=== PATIENT | female | born 1930 | race Caucasian/White ===

== ENCOUNTER 2016-04-02 13:40 | Inpatient (IN) ==
--- NOTE | 2016-04-01 21:40 | Discharge Summary ---
<DenisereganKimberly L - Last Filed: 04/02/16 13:55> Date of Encounter: 04/02/16 - Discharge Diagnosis (1) Fracture of humeral shaft, closed Priority: Primary Status: Acute Qualifiers: Encounter type: initial encounter Fracture morphology: unspecified fracture morphology Laterality: left Qualified Code(s): S42.302A - Unspecified fracture of shaft of humerus, left arm, initial encounter for closed fracture (2) Obesity Priority: Secondary Status: Chronic Qualifiers: Obesity type: unspecified obesity type Obesity severity: non-morbid Qualified Code(s): E66.9 - Obesity, unspecified (3) CAD (coronary artery disease) Priority: Secondary Status: Chronic Qualifiers: Coronary Disease-Associated Artery/Lesion type: unspecified vessel or lesion type [place] vs. transplanted heart: unspecified whether [place] or transplanted heart Associated angina: angina presence unspecified Qualified Code(s): I25.10 - Atherosclerotic heart disease of [place] coronary artery without angina pectoris (4) Diabetes mellitus, type 2 Priority: Secondary Status: Chronic Qualifiers: Diabetes mellitus complication status: without complication Diabetes mellitus long-term insulin use: unspecified long-term insulin use status Qualified Code(s): E11.9 - Type 2 diabetes mellitus without complications (5) Dyslipidemia Priority: Secondary Status: Chronic (6) Osteopenia Priority: Secondary Status: Chronic (7) Renal insufficiency, mild Priority: Secondary Status: Chronic (8) History of infection Priority: Secondary Status: Chronic Comments: Left Shoulder - Discharge Medications Home Medications: Hydrochlorothiazide 12.5 mg PO DAILY 11/04/14 [History] Loratadine [Loradamed] 10 mg PO DAILY 11/04/14 [History] Lovastatin 40 mg PO 1600 11/04/14 [History] Aspirin [Adult Low Dose Aspirin EC] 81 mg PO DAILY 04/14/15 [History] Glimepiride [Amaryl] 4 mg PO DAILY 04/14/15 [History] TraMADol [Ultram] 50 mg PO Q6HR PRN #20 tablet 05/28/15 [Rx] OxyCODONE Immed Rel [Roxicodone 5 MG] 5 - 10 mg PO Q6HR PRN #40 tablet 04/01/16 [Rx] Calcium Carbonate [Calcium] 1,500 mg PO DAILY 04/02/16 [History] Escitalopram Oxalate 5 mg PO DAILY 04/02/16 [History] Losartan Potassium [Cozaar] 50 mg PO 1500 04/02/16 [History] Metformin HCl [Fortamet] 500 mg PO BID 04/02/16 [History] Metoprolol Tartrate [Lopressor] 50 mg PO DAILY 04/02/16 [History] Allergies/Adverse Reactions: Allergies codeine Allergy (Verified 04/02/16 14:38) See Comments unsure Penicillins [PCN] Allergy (Verified 04/02/16 14:38) Hives pioglitazone [From Actos] Allergy (Verified 04/02/16 14:38) Palpitations Primary care physician: Jack Mcneil DO - Patient Status Disposition: Transfer Inpatient Rehab Fac Condition: Good - Discharge Instructions Follow Up With: Jack Mcneil DO [Primary Care Provider] - - Hospital Course Hospital course: Ms. South is a 85 year old female - Time Spent with Patient Total time spent providing and/or coordinating discharge services: <Harjinder Hong - Last Filed: 04/03/16 06:50> Date of Encounter: 04/03/16 Time of Encounter: 06:49 - Discharge Diagnosis (1) Fracture of humeral shaft, closed Priority: Primary Status: Acute Qualifiers: Encounter type: subsequent encounter Fracture morphology: unspecified fracture morphology Laterality: left (2) History of infection Priority: Secondary Status: Chronic (3) CAD (coronary artery disease) Priority: Secondary Status: Chronic Qualifiers: Coronary Disease-Associated Artery/Lesion type: unspecified vessel or lesion type [place] vs. transplanted heart: unspecified whether [place] or transplanted heart Associated angina: angina presence unspecified Qualified Code(s): I25.10 - Atherosclerotic heart disease of [place] coronary artery without angina pectoris (4) Diabetes mellitus, type 2 Priority: Secondary Status: Chronic Qualifiers: Diabetes mellitus complication status: without complication Diabetes mellitus long term care phlebotomist insulin use: unspecified long term care phlebotomist insulin use status Qualified Code(s): E11.9 - Type 2 diabetes mellitus without complications (5) Dyslipidemia Priority: Secondary Status: Chronic (6) Hypertension Priority: Secondary Status: Chronic Qualifiers: Hypertension type: unspecified secondary hypertension Qualified Code(s): I15.9 - Secondary hypertension, unspecified (7) Obesity Priority: Secondary Status: Chronic Qualifiers: Obesity type: unspecified obesity type Obesity severity: unspecified obesity severity Qualified Code(s): E66.9 - Obesity, unspecified (8) Osteopenia Priority: Secondary Status: Chronic (9) Renal insufficiency, mild Priority: Secondary Status: Chronic (10) Acute blood loss anemia Priority: Primary Status: Acute Primary care physician: Jack Mcneil DO - Patient Status Functional capacity at discharge: independent ambulation Overall status at discharge: patient is progressing back to baseline - Hospital Course Hospital course: Ms. South is a 85 year old female The patient had an uneventful postoperative course. They received antibiotics and physical therapy and were discharged in stable condition. There will follow -up in the office in 2 weeks. - Time Spent with Patient Total time spent providing and/or coordinating discharge services:
[2016-04-02] MEDS ORDERED: Ringers Solution, Lactated 1,000 ML IVC SCH ×2 (14:15→19:41)
--- NOTE | 2016-04-02 14:16 | History & Physical Report ---
Date of Encounter: 04/02/16 Time of Encounter: 14:16 24 Hour HP Update - Instructions Instructions: If the History and Physical is less than 30 days old and was completed prior to A.M. admission and or procedure and has NOT been updated on calendar day of procedure please complete this update prior to performing procedure. - Update Patient reports changes in Medical Condition: No Changes in assessment/condition: No Changes in Medication: No Preop tests/diagnostics Reviewed: Yes Surgery Remains Indicated: Yes Consent for Planned Operative Procedure(s) Verified: Yes - Pre-Operative Checklist Preoperative Checklist Indicated: No Prophylactic Antibiotic Ordered: Yes Is VTE Prophylaxis Indicated?: Yes
[2016-04-02] MEDS ORDERED: CeFAZolin Pre 2,000 MG/100 ML 2,000 MG/100 ML BAG IVPB ONE (14:36)
--- NOTE | 2016-04-02 14:46 | Anesthesia Evaluation PreOp ---
Date of Encounter: 04/02/16 Time of Encounter: 14:43 - Past History Planned Operation: l tsr revision Cardiac History: HI (cad), Hyperlipidemia, Cardiac Surgery (3v cabg), Other ( echo: 12/12 ef 60, nl rv) Pulmonary History: Denies Any Significant HX RECREATIONAL DIRECTOR History: Other (periphe neuropathy) Other Medical History: Diabetes Type II Anesthesia History: No Prior Anesthetic Complications, Past Anesthesia (tahbso, cabg, bladder tuck, l tsr) Alcohol Use: none Drug use: none Medications and Allergies Hydrochlorothiazide 12.5 mg PO DAILY 11/04/14 [History] Loratadine [Loradamed] 10 mg PO DAILY 11/04/14 [History] Lovastatin 40 mg PO HS 11/04/14 [History] Aspirin [Adult Low Dose Aspirin EC] 81 mg PO DAILY 04/14/15 [History] Glimepiride [Amaryl] 8 mg PO DAILY 04/14/15 [History] TraMADol [Ultram] 50 mg PO Q6HR PRN #20 tablet 05/28/15 [Rx] OxyCODONE Immed Rel [Roxicodone 5 MG] 5 - 10 mg PO Q6HR PRN #40 tablet 04/01/16 [Rx] Calcium Carbonate [Calcium] 1,500 mg PO DAILY 04/02/16 [History] Escitalopram Oxalate 5 mg PO DAILY 04/02/16 [History] Losartan Potassium [Cozaar] 50 mg PO 1500 04/02/16 [History] Metformin HCl [Fortamet] 500 mg PO BID 04/02/16 [History] Metoprolol Tartrate [Lopressor] 50 mg PO DAILY 04/02/16 [History] Allergies codeine Allergy (Verified 04/02/16 14:38) See Comments unsure Penicillins [PCN] Allergy (Verified 04/02/16 14:38) Hives pioglitazone [From Actos] Allergy (Verified 04/02/16 14:38) Palpitations - Meds/Allergy Pre-op Review Medications Reviewed: Yes Allergies Reviewed: Yes Beta Blockers on Current Med List: Yes If Beta Blockers taken, Date/Time (Last Dose taken): metoprolol 0630 Anesthesia Results - Labs Laboratory Tests 03/27/16 03/29/16 03/29/16 14:05 07:40 07:40 Hgb 9.1 L Hct 27.1 L Plt Count 133 L PT 11.6 INR 1.1 APTT 30.7 Sodium 138 Potassium 4.6 H D Creatinine 0.95 - Imaging EKG: report reviewed (ectopic atrila rhythm, lat ischemia) Anesthesia Exam O2 Sat Height 1.7 m Height 1.7 m Weight 97.522 kg Weight 97.522 kg O2 Sat by Pulse Oximetry 97 Vital Signs Temp Pulse Resp BP Pulse Ox 97.8 F 61 18 147/70 97 04/02/16 14:23 04/02/16 14:23 04/02/16 14:23 04/02/16 14:23 04/02/16 14:23 Blood glucose: 216 Height: 1.7 Weight: 97 NPO (# of Hours): >8 - HEENT Pupil (Motor): Pupils equal, EOMI Mallampati: II Teeth: Edentulous Denture Type: Upper: Complete, Lower: Complete Oral Opening: Greater than 3 - RECREATIONAL DIRECTOR LOC: Oriented RECREATIONAL DIRECTOR Motor: Normal RUE, Normal LUE, Normal RLE, Normal LLE, Normal Face RECREATIONAL DIRECTOR Sensory: Normal: RUE, Face, Deficit: LUE, RLE, LLE - Cardiac Rhythm: Regular Murmur: None - Pulmonary Breath Sounds: bilateral Clear Respiratory Effort: Symmetrical Anesthesia Assess/Plan ASA Score: 3 Modified [place] Scale for Level of Consciousness: Cooperative, oriented, and tranquil Anesthetic Plan: General Monitoring Plan: Standard Monitors Recovery Plan: PACU
[2016-04-02] MEDS ORDERED: Magnesium Sulfate 2 GM/100 ML PIGGYBACK IVPB ONE (15:00)
[2016-04-02] MEDS ORDERED: CloNIDine Patch 0.1 MG PATCH (WEEKLY) TD SCH (15:00)
[2016-04-02] MEDS ORDERED: *HR* Propofol 200 MG/20 ML VIAL IVP ONE (15:07)
[2016-04-02] MEDS ORDERED: *HR* FentaNYL (PF) 100 MCG/2 ML VIAL ONE ×2 (15:08→16:16)
[2016-04-02] MEDS ORDERED: *HR* Midazolam HCl 2 MG/2 ML VIAL ONE ×2 (15:09→16:16)
[2016-04-02] MEDS ORDERED: Lidocaine -MPF 2% 2 ML VIAL ONE (15:11)
[2016-04-02] MEDS ORDERED: Dextrose Gel 15 GM PO PRN ×2 (16:43)
[2016-04-02] MEDS ORDERED: *HR* Dextrose 50 % in Water (Syg) 50 ML SYRINGE IVP PRN (16:43)
[2016-04-02] MEDS ORDERED: D5% in Water 1,000 ML IV PRN (16:43)
[2016-04-02] MEDS ORDERED: EPHEDrine 50 MG/ML VIAL ONE (16:59)
[2016-04-02] MEDS ORDERED: Ondansetron 4 MG/2 ML VIAL ONE (17:14)
--- NOTE | 2016-04-02 18:22 | Orthopedic Operative Note ---
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 Incision well-healed no erythema and no swelling. Operative procedure: The patient was brought to the operating room and placed on the operating room table. The patient was placed in the modified beachchair position. All pressure points were padded appropriately. And the head was stabilized in the neutral position. The operative extremity was prepped and draped in the sterile surgical fashion. The patient received IV antibiotics prior to skin incision. A extended deltopectoral approach was made to the operative shoulder. Incision was made through the old incision, through the skin and subcutaneous tissue, hemo stasis was obtained with Bovie cautery. Using careful blunt dissection the deltopectoral interval was developed and the clavipectoral fascia was incised. Normal-appearing joint fluid was encountered it was sent for Gram stain and culture. An extensive debridement was performed, the proximal humeral segment was dissected free subperiosteally and removed after the cement spacer was removed. This exposed the distal fragment which was transected with oscillating saw to get an even cut. This was reamed up to a 9 x 100. Attention was then turned to the glenoid. Anterior and posterior Bankart retractors were placed to expose the glenoid. The glenoid guide was seated the centering hole was made the glenoid was reamed with the appropriate reamer. The glenoid baseplate was seated and secured with one 6.5 compression screw and 44.75 millimeter locking screws. . The baseplate was irrigated and driedthe 41+6 Ghada was seated and secured. Attention was then turned back to the humeral side. The 9 x 100 trial was seated a 60 mm segment was built up with a large proximal body and a standard tray this was found to be relocatable. This was set in 20 degrees of retroversion. Trials were removed, the incision sat for 2 minutes with a Betadine saline solution all the implants were assembled on the back table. The entire construct was impacted in place in 20 degrees of retroversion. Trial reduction revealed excellent motion and stability with a +3 retained Elle trial was removed reapply was seated and secured shoulder was reduced patient excellent motion and excellent stability. Deep tissue was irrigated with pulse irrigation. Extended deltopectoral interval was closed with a running #2 PDS suture subcutaneous tissues and closed deep 1 PDS suture superficially with 0 PDS suture skin was closed with skin oneyda patient placed in a sterile dressing abducted sling extubated transferred to recovery room in stable condition. Anesthesia: SHIELA Surgeon: Harjinder Hong Elementary Educator: Kimberly Edmonds Condition: stable Disposition: PACU
--- NOTE | 2016-04-02 19:20 | Anesthesia Evaluation Post Op ---
Date of Encounter: 04/02/16 Time of Encounter: 19:15 - Vital Signs Vital Signs: Vital Signs/O2 Sat/Glucose, Most Current Temp Pulse Resp BP Pulse Ox 04/02/16 19:12 97.9 F 67 16 124/52 94 L 04/02/16 19:02 68 16 128/55 97 04/02/16 18:52 69 16 123/52 99 04/02/16 18:42 97.4 F L 74 16 144/62 99 - Lungs Lungs: Clear Ascult./Percussion - Airway Airway: Non-obstructed - Cardiovascular Regular Rate - Mental Status Mental Status: Alert & Oriented, Answers Appropriately - Pain Pain Scale: 1 - Nausea Vomiting Nausea Vomiting: Not Present - Hydration Hydration: Ice chips - Discharge PostOp Status: Transfer Patient to floor
[2016-04-02 19:21] LABS: Hematocrit 27.2 % (35.3-44.9)
[2016-04-02] MEDS ORDERED: *HR* OxyCODONE Immed Rel 5 MG TABLET PO PRN ×2 (19:41)
[2016-04-02] MEDS ORDERED: Ondansetron 4 MG/2 ML VIAL IVP PRN (19:41)
[2016-04-02] MEDS ORDERED: MOM Conc 10 ML UD.LIQ PO PRN (19:41)
[2016-04-02] MEDS ORDERED: *HR* HYDROmorphone (PF) 1 MG/ML SYRINGE IVP PRN (19:41)
[2016-04-02] MEDS ORDERED: Albuterol Neb 1.25 MG/3 ML VIAL IH ONE (19:41)
[2016-04-02] MEDS ORDERED: Acetaminophen 325 MG TABLET PO PRN (19:41)
[2016-04-02] MEDS ORDERED: Temazepam 15 MG CAPSULE PO PRN (19:41)
[2016-04-02] MEDS ORDERED: Sennosides 8.6 MG TABLET PO PRN (19:41)
[2016-04-02] MEDS ORDERED: Naloxone 0.4 MG/ML INJ IVP PRN (19:41)
[2016-04-02] MEDS: traMADol 50 MG TABLET PO PRN (21:03)
[2016-04-02] MEDS: *HR* Metformin 500 MG TABLET PO SCH (21:04)
[2016-04-03] MEDS: Clindamycin 900 MG/50 ML 900 MG/50 ML IV.SOLN IVPB SCH ×2 (00:32→08:26)
[2016-04-03 06:16] LABS: Hematocrit 25.2 % (35.3-44.9); Hemoglobin 8.6 g/dL (11.5-15.4)
[2016-04-03] MEDS ORDERED: Aspirin Enteric Coated 325 MG Tablet PO SCH (06:46)
[2016-04-03] MEDS: Aspirin Enteric Coated 325 MG Tablet PO SCH ×2 (06:52→08:24)
--- NOTE | 2016-04-03 06:52 | Orthopedics Progress Note ---
Date of Encounter: 04/03/16 Time of Encounter: 06:51 - Assessment and Plan (1) Fracture of humeral shaft, closed Current Visit: Yes Status: Acute Qualifiers: Encounter type: subsequent encounter Fracture morphology: unspecified fracture morphology Laterality: left Qualified Code(s): S42.302D - Unspecified fracture of shaft of humerus, left arm, subsequent encounter for fracture with routine healing (2) History of infection Current Visit: Yes Status: Chronic (3) CAD (coronary artery disease) Current Visit: No Status: Chronic Qualifiers: Coronary Disease-Associated Artery/Lesion type: unspecified vessel or lesion type [place] vs. transplanted heart: unspecified whether [place] or transplanted heart Associated angina: angina presence unspecified Qualified Code(s): I25.10 - Atherosclerotic heart disease of [place] coronary artery without angina pectoris (4) Diabetes mellitus, type 2 Current Visit: No Status: Chronic Qualifiers: Diabetes mellitus complication status: without complication Diabetes mellitus intermediate insulin use: unspecified intermediate insulin use status Qualified Code(s): E11.9 - Type 2 diabetes mellitus without complications (5) Dyslipidemia Current Visit: No Status: Chronic (6) Hypertension Current Visit: No Status: Chronic Qualifiers: Hypertension type: unspecified secondary hypertension Qualified Code(s): I15.9 - Secondary hypertension, unspecified; I15 - Secondary hypertension (7) Obesity Current Visit: No Status: Chronic Qualifiers: Obesity type: unspecified obesity type Obesity severity: unspecified obesity severity Qualified Code(s): E66.9 - Obesity, unspecified (8) Osteopenia Current Visit: No Status: Chronic (9) Renal insufficiency, mild Current Visit: No Status: Chronic (10) Acute blood loss anemia Current Visit: Yes Status: Acute Subjective Interval history: Patient was seen this morning doing well without complaints. Afebrile vital signs stable. Operative extremity: Neurovascularly intact Dressing clean dry and intact Calves nontender Assessment and plan: Continue with postoperative care Hemoglobin 8.6 asymptomatic discharged today Objective Vital signs: Vital Signs Temp Pulse Resp BP Pulse Ox 04/03/16 04:00 97.7 F 70 16 128/58 96 04/03/16 00:00 97.6 F 75 16 125/51 98 04/02/16 21:11 97.6 F 71 14 127/51 100 04/02/16 20:45 97.7 F 67 14 131/54 100 04/02/16 20:38 13 100 04/02/16 20:15 97.3 F L 69 14 129/53 99 04/02/16 20:12 98 04/02/16 20:00 97.6 F 65 14 133/54 100 04/02/16 19:51 97.2 F L 71 14 132/96 99 04/02/16 19:30 97.3 F L 65 14 137/53 100 04/02/16 19:12 97.9 F 67 16 124/52 94 L 04/02/16 19:02 68 16 128/55 97 04/02/16 18:52 69 16 123/52 99 04/02/16 18:42 97.4 F L 74 16 144/62 99 04/02/16 14:23 97.8 F 61 18 147/70 97 Intake and Output 04/02/16 04/02/16 04/03/16 15:59 23:59 07:59 Intake Total 100 / 100 50 / 50 Output Total 300 / 300 Balance -200 / -200 50 / 50 Intake: IV Fluids 100 / 100 50 / 50 Ancef Premix 2,000 MG/100 100 / 100 ML 2,000 mg In 100 ml @ 200 mls/hr IVPB PREOP ONE Rx#:[id number] Cleocin 900 MG/50 ML 900 50 / 50 mg In 50 ml @ 50 mls/hr IVPB Q8H [facility] Rx#: [id number] Output: Estimated Blood Loss 300 / 300 Other: # Urine Diapers 1 Weight 97.522 kg Blood Glucose* 216 219 - Labs CBC & BMP: 04/03/16 05:34 Labs: Abnormal lab results Hgb 8.6 g/dL (11.5-15.4) L 04/03/16 05:34 Hct 25.2 % (35.3-44.9) L 04/03/16 05:34 POC Glucose 219 (58-89) H 04/02/16 18:46 - VTE Documentation of Mechanical Device: Venous foot pump, device Consult Discharge Plan - Plan Referrals: Jack Mcneil DO [Primary Care Provider] -
[2016-04-03] MEDS ORDERED: Insulin LISPRO 300 UNITS/3 ML VIAL SQ SCH ×2 (07:30→21:00)
[2016-04-03] MEDS ORDERED: Dextrose Gel 15 GM PO PRN ×2 (07:59)
[2016-04-03] MEDS ORDERED: *HR* Dextrose 50 % in Water (Syg) 50 ML SYRINGE IVP PRN (07:59)
[2016-04-03] MEDS ORDERED: D5% in Water 1,000 ML IV PRN (07:59)
[2016-04-03] MEDS: *HR* Metformin 500 MG TABLET PO SCH (08:24)
[2016-04-03] MEDS: traMADol 50 MG TABLET PO PRN ×2 (08:25→14:53)
[2016-04-03] MEDS: Insulin LISPRO 300 UNITS/3 ML VIAL SQ SCH ×2 (08:26→12:45)
[2016-04-03] MEDS ORDERED: Aspirin Enteric Coated 81 MG Tablet PO SCH (09:00)
[2016-04-03] MEDS ORDERED: *HR* Glimepiride 4 MG TABLET PO SCH (09:00)
[2016-04-03] MEDS ORDERED: hydroCHLOROthiazide 25 MG TABLET PO SCH (09:00)
[2016-04-03] MEDS ORDERED: Loratadine 10 MG TABLET PO SCH (09:00)
[2016-04-03] MEDS ORDERED: 0.9 % Sodium Chloride 250 ML ONE (10:37)
[2016-04-03 15:10] VITALS: BP 121/58
== END 2016-04-03 16:15 | DRG 483 ==
LOC: SAMDAY 13:40 → 3NENU 19:36
PROVIDERS: ADMIT Orthopaedic Surgery; ATTEND Orthopaedic Surgery